=== PATIENT | male | born 1985 | race Caucasian/White ===

== ENCOUNTER 2021-01-03 10:01 | Inpatient (IN) | payer SELFPAY ==
[2021-01-03] VITALS (36 sets, daily range): BP systolic 89–134; BP diastolic 60–84; PULSE 90–116; RESP 12–27; TEMP 37.1–39.1; O2SAT 96–100; BMI 21.9
--- NOTE | ~2021-01-03 | CT_ITS ---
EXAMINATION: CT abdomen pelvis wo con DATE: 01/03/2021 12:11 INDICATION: Lower abdominal pain, recently passed kidney stones, urinary retention TECHNIQUE: Computed tomography (CT) of the abdomen and pelvis was performed without intravenous contr ast. The dose-length product (DLP) was 216.01 mGy-cm. Automated exposure control and iterative recons truction technique were employed. COMPARISON: None FINDINGS: Minimal dependent atelectasis is present in the lung bases. The heart size is normal. The l iver, spleen, pancreas, gallbladder, and adrenal glands are normal. No stones are identified in the k idneys, ureters, or bladder. There is no hydronephrosis or hydroureter. The bladder is distended and demonstrates diffuse wall thickening. There is mild perinephric stranding surrounding the kidneys. No pathologically enlarged abdominal or pelvic lymph nodes are identified. There is no free intraperito carlee gas or evidence of bowel obstruction. The appendix is normal. IMPRESSION: 1. Distended urinary bladder with wall thickening and mild perinephric stranding surrounding the kidn eys. Findings are suggestive of urinary tract infection with possible superimposed pyelonephritis. Reviewed, dictated and finalized at location A. IMPRESSION: 1. Distended urinary bladder with wall thickening and mild perinephric strandin g surrounding the kidneys. Findings are suggestive of urinary tract infection w ith possible superimposed pyelonephritis.
[2021-01-03 10:27] LABS: Basophils Absolute Auto 0.1 K/mm3 (0.0-0.1); Basophils Percent Auto 0.4 % (0.2-1.2); Hematocrit 46.7 % (42.0-52.0); Hemoglobin 16.2 g/dL (14.0-18.0); Immature Granulocyte Absolute 0.23 K/mm3 (0.00-0.031); Immature Granulocyte Percent A 1.5 % (0-0.5); Immature Platelet Fraction Pct 5.9 % (0.9-11.2); Lymphocytes Absolute Auto 0.24 K/mm3 (0.9-3.2); Lymphocytes Percent Auto 1.5 % (18.3-44.2); Mean Corpuscular HGB Conc 34.7 g/dl (32-36); Mean Corpuscular Hemoglobin 32.5 pg (26-34); Mean Corpuscular Volume 93.8 fl (80-100); Mean Platelet Volume 10.8 fl (7.4-10.4); Monocytes Absolute Auto 0.2 K/mm3 (0.1-0.6); Monocytes Percent Auto 1.4 % (2.6-8.5); Neutrophils Absolute Auto 15.1 K/mm3 (1.3-6.7); Neutrophils Percent Auto 95.2 % (45.5-73.1); Platelet Count Result 97 k/mm3 (150-375); Red Blood Count 4.98 M/mm3 (4.6-6.20); Red Cell Distribution Width 12.3 % (11.5-14.5); White Blood Count 15.8 K/mm3 (4.5-10.0)
[2021-01-03 10:35] LABS: Anion Gap 12 mmol/L (8-16); Blood Urea Nitrogen 38 mg/dL (9-20); Carbon Dioxide 26 mmol/L (22-30); Chloride 98 mmol/L (98-107); Estimated Glomerular Filt Rate 24; Glucose 119 mg/dL (75-110); Potassium 4.7 mmol/L (3.4-5.0); Sodium 136 mmol/L (137-145)
[2021-01-03] MEDS: SODIUM CHLORIDE 0.9% IV 1,000 ML 999 ML IV CONT (10:45)
[2021-01-03 11:00] LABS: Add Urine Microscopic? YES; Appearance Urine Cloudy (Clear); Bacteria Urine 4+ /hpf; Bilirubin Urine Negative (Negative); Blood Urine 3+ (Negative); Color Urine Amber (Yellow); Glucose Urine UA Negative (Negative); Hyaline Casts Urine 15-19 /lpf; Ketones Urine Negative (Negative); Leukocyte Esterase Ur 3+ LEU/UL (Negative); Mucus Urine Few /lpf; Nitrate Urine Negative (Negative); Protein Urine 2+ mg/dL (Negative); RBC Urine 21-50 /hpf (0-2); Specific Grav Ur 1.014 (1.001-1.035); Squamous Epithelial Cell Urine Few /hpf (Few); WBC Clumps Urine Present /HPF; WBC Urine >75 /hpf
[2021-01-03] MEDS: SODIUM CHLORIDE 0.9% IV 1,000 ML 999 ML (11:12)
[2021-01-03] MEDS: ONDANSETRON INJ 4 MG/2 ML VIAL (11:12)
--- NOTE | 2021-01-03 11:13 | PC.NURSE ---
Pt. stated feeling the urge to vomit. ERP notified. ERP ordered another 1L of NS and 4mg of zofran IVP via verbal order readback.
[2021-01-03] MEDS: ONDANSETRON INJ 4 MG/2 ML VIAL IV PUSH (12:31)
[2021-01-03] MEDS: FAMOTIDINE 20 MG/2 ML VIAL IV PUSH (12:31)
--- NOTE | 2021-01-03 13:00 | PC.NURSE ---
Multiple knight catheter attempts by RN. ERP aware. Urology notified. Pt. retaining urine. Bladder scanner shows over 999+ in bladder. ERP is aware.
--- NOTE | 2021-01-03 14:50 | ED.ABDPAIN ---
HPI - Abdominal Pain General Chief Complaint: Urogenital-Male Stated Complaint: poss kidney stone Time Seen by Provider: 01/03/21 10:05 Source: patient Mode of arrival: ambulatory Limitations: no limitations History of Present Illness HPI narrative: 35-year-old with no major medical problems here with complaints of lower abdominal pain. Patient states that he has been having penile pain for past few days , last night he stated he passed a small kidney stone however he still continues to have pain when he urinates mostly at the end of his micturition. He denies any fever or chills. Complains of mild nausea. No previous history of kidney stones. He states that at age 21 had a similar problem had to have a Meza catheter put in at that time. MD elicited complaint: abdominal pain Pertinent past history: none Onset (ago): day(s) (1) Pain Consistency: constant Location: suprapubic Severity: severe Quality: aching and fullness Radiation: other (Tip of the penis) Relieving factors: nothing Associated symptoms: nausea Related Data Allergies Allergy/AdvReac Type Severity Reaction Status Date / Time No Known Allergies Allergy Verified 01/03/21 10:44 Review of Systems Review of Systems: All systems reviewed & are unremarkable except as noted in HPI and below Constitutional: Constitutional: Reports no additional constitutional complaints Eyes: Eyes: Reports no additional eye complaints ENT: Reports system reviewed and no additional complaints, except as documented Cardiovascular: Cardiovascular: Reports no additional cardiovascular complaints Respiratory: Respiratory: Reports no additional respiratory complaints Gastrointestinal: Gastrointestinal: Reports as per HPI Genitourinary: Genitourinary: Reports as per HPI, Reports oliguria and Reports genital pain Musculoskeletal: Musculoskeletal: Reports no additional musculoskeletal complaints Integumentary/Breasts: Skin/Breast: Reports system reviewed and no additional complaints, except as docu Neurologic: Reports system reviewed and no additional complaints, except as documented Psychiatric: Psychiatric: Reports no additional psychiatric complaints Exam Narrative: Exam Narrative: GENERAL: Well-appearing, well-nourished, and in no acute distress. HEAD: Normocephalic, atraumatic. EYES: PERRLA and EOMI.. NECK: Supple. CHEST: Clear to auscultation. No respiratory distress. HEART: Tachycardic. No murmur heard. Normal peripheral pulses. ABDOMEN: Soft, suprapubic tenderness, nondistended, normal active bowel sounds. EXTREMITIES: Normal range of motion. No edema. SKIN: Warm, dry, no rash. NEURO: No focal deficits. Alert and oriented x3. PSYCH: Normal mood and affect. Course Course Emergency Course: Patient was given 2 L of fluid which improved his blood pressure his systolic is 115/80 however he still remained tachycardic I did discuss his lab work and CT findings with the patient. I did a bladder scan on him which had 999 mL of urine he was able to void only 120 initially and later he did void 600 mL however repeat bladder scan showed 400 mL of urine. Discussed with Dr. Haque recommended Meza catheter however we were unable to place a Meza catheter had a stricture. Dr. Haque was here at the bedside placed a Meza catheter. Vital Signs Vital signs: Vital Signs Pulse Rate 107 H 01/03/21 10:20 Respiratory Rate 16 01/03/21 10:20 Blood Pressure 89/60 L 01/03/21 10:20 Pulse Oximetry 98 01/03/21 10:20 Temperature 37.1 C 01/03/21 10:42 Pulse Rate 105 H 01/03/21 14:19 Respiratory Rate 26 H 01/03/21 14:19 Blood Pressure 101/69 01/03/21 14:19 Pulse Oximetry 99 01/03/21 14:19 MDM - Abdominal Pain Differential Diagnosis Differential diagnosis: Likely abdominal pain and calculus of kidney Lab Data Result diagrams: 01/03/21 10:20 01/03/21 10:20 Labs: Lab Results 01/03/21 01/03/21 01/03/21 Range/Units 10:20 10:
--- NOTE | 2021-01-03 15:25 | WPDURCON ---
Assessment and Plan Assessment and plan (1) Acute retention of urine: Code(s): R33.8 - Other retention of urine Status: Acute Assessment and Plan: I was able to place a 12 [place] Meza catheter. He should keep the catheter until Tuesday. At that point, if the UTI is being well treated and the rneal function has returned to normal, he can have a voiding trial. He will need a cystoscopy in the office as an outpatient with either Dr. Valdivia or Dr. Salmon. I suspect that he has a urethral stricture. Further work up with the cystoscopy ad RUG will be needed as an outpatient. Urology Consult Note HPI Date Seen: 01/03/21 Primary Care Provider: Rylan Arciniega MD Consult Narrative Narrative: Oli Dickson is a 35 year old male. He passed a stone yesterday. He had progressive penile pain and difficulty voiding. He presented to the ER with fever, chills, and hypotension. He hwas found to have acute renal failure. His PVR was 1L. Meza catheters were attempted by the ER staff, and could not be placed. He reports a prior history of urethral trauma when he was 21. A stone got stuck in the urethra. After a catheter was placed, the stone came out. Hehas a lot of voiding issues at baseline with difficulty passing urine and taking a long time to pass urine. Review of Systems Review of Systems: All systems reviewed & are unremarkable except as noted in HPI and below Meds Home Medications and Allergies Allergies Allergy/AdvReac Type Severity Reaction Status Date / Time No Known Allergies Allergy Verified 01/03/21 10:44 Vital Signs Vital Signs - 24 hr 01/03/21 10:20 01/03/21 10:21 01/03/21 10:37 Temperature Pulse Rate 107 H 104 H 90 Respiratory Rate 16 18 25 H Blood Pressure 89/60 L Pulse Oximetry 98 98 99 01/03/21 10:42 01/03/21 10:45 01/03/21 10:47 Temperature 37.1 C Pulse Rate 110 H 116 H 104 H Respiratory Rate 22 H 16 16 Blood Pressure 93/67 L 89/73 L Pulse Oximetry 98 98 98 01/03/21 11:12 01/03/21 11:13 01/03/21 11:15 Temperature Pulse Rate 104 H 102 H 105 H Respiratory Rate 23 H 22 H 18 Blood Pressure 109/76 Pulse Oximetry 98 98 01/03/21 11:16 01/03/21 11:30 01/03/21 11:31 Temperature Pulse Rate 105 H 104 H 109 H Respiratory Rate 16 17 17 Blood Pressure 116/81 110/82 Pulse Oximetry 98 100 100 01/03/21 11:45 01/03/21 11:50 01/03/21 12:00 Temperature Pulse Rate 98 104 H 105 H Respiratory Rate 16 19 20 Blood Pressure 107/72 Pulse Oximetry 100 100 100 01/03/21 12:24 01/03/21 12:30 01/03/21 12:31 Temperature Pulse Rate 114 H 111 H 109 H Respiratory Rate 17 23 H 23 H Blood Pressure 119/71 Pulse Oximetry 100 100 99 01/03/21 12:45 01/03/21 12:46 01/03/21 13:00 Temperature Pulse Rate 108 H 111 H 104 H Respiratory Rate 27 H 20 24 H Blood Pressure 113/71 Pulse Oximetry 100 01/03/21 14:08 01/03/21 14:18 01/03/21 14:19 Temperature Pulse Rate 110 H 111 H 105 H Respiratory Rate 26 H 13 26 H Blood Pressure 101/69 Pulse Oximetry 100 99 99 01/03/21 14:20 01/03/21 14:30 01/03/21 14:31 Temperature Pulse Rate 103 H 103 H 107 H Respiratory Rate 25 H 23 H 19 Blood Pressure 109/71 Pulse Oximetry 100 98 01/03/21 14:45 01/03/21 14:46 Temperature Pulse Rate 108 H 110 H Respiratory Rate 19 19 Blood Pressure 110/68 Pulse Oximetry 98 Exam Const: General: cooperative and healthy appearing HENMT: Head: normal to inspection and normocephalic Ears: hearing grossly normal bilaterally and external ears normal Chest: Chest palpation & inspection: normal inspection of the chest Resp: Effort & Inspection: normal respiratory effort and able to speak in complete sentences : Penis: Yes normal penis and Yes circumcised Meatus: meatus normal and no meatla discharge Skin: General skin exam: normal color and no rashes or lesions noted Neuro: General: oriented to person, oriented to place and oriented to time Resul
[2021-01-03] MEDS: ACETAMINOPHEN 325 MG TABLET 650 MG PO ×2 (15:34→21:38)
[2021-01-03] MEDS: SODIUM CHLORIDE 0.9% IV 1,000 ML 125 ML IV CONT (15:35)
--- NOTE | 2021-01-03 15:54 | PC.NURSE ---
report received from Jonah RN in ED, reviewed plan of care
--- NOTE | 2021-01-03 16:15 | ADMGEN ---
This patient, Oli Dickson, was admitted to Medical Room 342-01. Patient/family oriented to hospital policies and general routines including ID bracelet, bed and alarms, visiting hours, pain management, procedures, bathroom and other care routines, personal items, smoking policy, room service/diet, and visiting hours. Information on how to activate the Rapid Response Team has been discussed. Patient/Family are encouraged to report perceived risks to care and to ask questions if they do not understand what they are told or what they should do.
--- NOTE | 2021-01-03 17:44 | PM.IMHP ---
H&P: HPI History of Present Illness Date/Time: 01/03/21 17:44 this is a 35-year-old male patient who came to the emergency room with complaints of lower abdominal pain. The patient stated that this started approximately 5 days ago. The patient thought that maybe he passed a small kidney stone and was still having difficulty urinating at the end of micturition. He had no fever or chills. The patient stated he had a similar episode when he was 21 years old and passed a kidney stone at that time. He had have a Meza catheter at that time as well. Today the Patient's blood pressure initially was 89/60 and he was given IV boluses. His pulse was 107. His blood pressure did improve with the 2 L of IV fluids and blood pressure is 101/69 after the IV fluids. Patient's BUN is 38 and creatinine is 3.0. A bladder scan was performed which shows approximately a 1000 mL of urine. The patient stated that they had tried 2 different Meza catheters and they were not able to get out any urine. After they removed the 2nd catheter the patient stated he voided 600 mL. However the bladder scan still showed a 400 mL of urine. Urology has been called. A Meza catheters now placed. According to Urology notes the patient Pagett Penilla catheter until Tuesday. With wall thickening and mild perinephritic stranding surrounding the kidneys. Findings are suggestive of urinary tract infection with possible superimposed pyelonephritis. The nurse reported to me that the patient had a 102 fever. Blood and urine cultures are pending on ceftriaxone, Pepcid, Zofran, and IV fluids. Patient is being admitted to inpatient status on the date of service of 01/03/2021. Chief Complaint: Abdominal pain Review of Systems Review of Systems: All systems reviewed & are unremarkable except as noted in HPI and below Constitutional: Constitutional: Reports as per HPI and Reports no additional constitutional complaints Eyes: Eyes: Reports as per HPI and Reports no additional eye complaints ENT: Reports system reviewed and no additional complaints, except as documented and Reports Normal hearing present Cardiovascular: Cardiovascular: Reports no additional cardiovascular complaints Respiratory: Respiratory: Reports no additional respiratory complaints and Reports no additional respiratory complaints Gastrointestinal: Gastrointestinal: Reports as per HPI and Reports no additional gastrointestinal complaints Musculoskeletal: Musculoskeletal: Reports no additional musculoskeletal complaints Integumentary/Breasts: Skin/Breast: Reports system reviewed and no additional complaints, except as docu and Reports as per HPI Neurologic: Reports system reviewed and no additional complaints, except as documented, Reports as per HPI and Reports Normal hearing present Psychiatric: Psychiatric: Reports no additional psychiatric complaints and Reports as per HPI Endocrine: Endocrine: Reports no additional endocrine complaints Hematologic/Lymphatic: Hematologic/Lymphatic: Reports no additional hematologic/lymphatic complaints Allergic/Immunologic: Allergic/Immunologic: Reports no additional allergic/immunologic complaints PMFSH Past Medical History Medical History Kidney stones Left elbow fracture Tobacco use Surgical History Surgical History (Updated 01/03/21 @ 17:54 by Carmela Jenkins NP) H/O elbow surgery The patient stated he has a plate and screws to his left upper pole. Family History Family History (Updated 01/03/21 @ 17:55 by Carmela Jenkins NP) Mother CAD (coronary artery disease) Father Acute myocardial infarction Lung disease Liver disease Social History Social History (Updated 01/03/21 @ 17:55 by Carmela Jenkins NP) Social History: The patient tells me that he only smokes when he drinks. The patient stated that he drinks and smokes socially. He is and lives with his . They have 2 children together. He is a bilingual hr generalist and coal inspector
[2021-01-03] MEDS: MORPHINE SULFATE (*CRX) 4 MG/ML INJ IV PUSH (19:59)
[2021-01-04] VITALS (10 sets, daily range): BP systolic 122–139; BP diastolic 67–88; PULSE 92–122; RESP 16; TEMP 37.3–38.7; O2SAT 96–100
[2021-01-04] MEDS: SODIUM CHLORIDE 0.9% IV 1,000 ML 125 ML IV CONT ×3 (00:47→15:58)
[2021-01-04] MEDS: ACETAMINOPHEN 325 MG TABLET 650 MG PO ×2 (01:46→08:10)
[2021-01-04] MEDS: MORPHINE SULFATE (*CRX) 4 MG/ML INJ IV PUSH ×3 (04:33→16:49)
[2021-01-04 05:54] LABS: Hematocrit 40.8 % (42.0-52.0); Immature Platelet Fraction Pct 5.1 % (0.9-11.2); Mean Corpuscular HGB Conc 34.3 g/dl (32-36); Mean Corpuscular Hemoglobin 32.6 pg (26-34); Mean Corpuscular Volume 95.1 fl (80-100); Mean Platelet Volume 11.1 fl (7.4-10.4); Platelet Count Result 58 k/mm3 (150-375); Red Blood Count 4.29 M/mm3 (4.6-6.20); Red Cell Distribution Width 12.3 % (11.5-14.5)
[2021-01-04 06:07] LABS: Anion Gap 7 mmol/L (8-16); Blood Urea Nitrogen 26 mg/dL (9-20); Carbon Dioxide 21 mmol/L (22-30); Chloride 106 mmol/L (98-107); Estimated CRCL calculation 77 ml/min; Estimated Glomerular Filt Rate > 60; Glucose 88 mg/dL (75-110); Potassium 3.5 mmol/L (3.4-5.0); Sodium 134 mmol/L (137-145)
[2021-01-04 07:14] LABS: Band Neutrophils Percent 40 % (0-6); Metamyelocytes Percent 1 %; Neutrophils Absolute Manual 7.52 K/mm3 (1.3-6.7); Neutrophils Percent Manual 54 % (46-73); Total Cells Counted 100
[2021-01-04 07:15] LABS: Platelet Estimate Decreased (Adequate); Stomatocytes 1+ (NORMAL)
--- NOTE | 2021-01-04 11:16 | PM.IMPN ---
Progress Note: A&P Assessment and Plan (1) Acute pyelonephritis: Code(s): N10 - Acute pyelonephritis Status: Acute Assessment and Plan: Continue with Rocephin. Blood and urine cultures are pending. The patient is febrile at this time continue with Tylenol. pain management. (2) SANG (acute kidney injury): Code(s): N17.9 - Acute kidney failure, unspecified Status: Acute Assessment and Plan: Continue with IV fluids and check BMP in the a.m.. If this does not resolve with simple hydration then may consider a renal ultrasound. (3) Acute retention of urine: Code(s): R33.8 - Other retention of urine Status: Acute Assessment and Plan: Urology has been consulted. Could be related to the kidney stone or possible urinary strictures. (4) Tobacco use: Code(s): Z72.0 - Tobacco use Status: Chronic Assessment and Plan: The patient stated he is not interested in smoking cessation at this time as he only smokes when he drinks and it is social rather than have it. Will continue with IV antibiotics and monitor culture. Subjective Date/time seen: 01/04/21 11:16 Patient was seen during the morning rounds today. Feeling slightly better. Decreased burning during urination. No shortness of breath or chest pain. No abdominal pain, no nausea, no vomiting. Mood stable Review of Systems Review of Systems: All systems reviewed & are unremarkable except as noted in HPI and below Constitutional: Constitutional: Reports as per HPI and Reports no additional constitutional complaints Eyes: Eyes: Reports as per HPI and Reports no additional eye complaints ENT: Reports system reviewed and no additional complaints, except as documented and Reports Normal hearing present Cardiovascular: Cardiovascular: Reports no additional cardiovascular complaints Respiratory: Respiratory: Reports no additional respiratory complaints and Reports no additional respiratory complaints Gastrointestinal: Gastrointestinal: Reports as per HPI and Reports no additional gastrointestinal complaints Musculoskeletal: Musculoskeletal: Reports no additional musculoskeletal complaints Integumentary/Breasts: Skin/Breast: Reports system reviewed and no additional complaints, except as docu and Reports as per HPI Neurologic: Reports system reviewed and no additional complaints, except as documented, Reports as per HPI and Reports Normal hearing present Psychiatric: Psychiatric: Reports no additional psychiatric complaints and Reports as per HPI Endocrine: Endocrine: Reports no additional endocrine complaints Hematologic/Lymphatic: Hematologic/Lymphatic: Reports no additional hematologic/lymphatic complaints Allergic/Immunologic: Allergic/Immunologic: Reports no additional allergic/immunologic complaints Exam Const: General: cooperative, healthy appearing, comfortable, no acute distress, well developed, alert, awake and Physically active Nutritional Appearance: average body habitus and well nourished Orientation/consciousness: oriented to person, oriented to place, oriented to time and patient oriented x3 Limitations: no limitations HENMT: Head: normal to inspection, No palpable skull fracture present, normocephalic and atraumatic Ears: hearing grossly normal bilaterally and external ears normal General nose exam: Normal external nose present, Normal nares present and No nasal polyps present Eyes: General: appearance normal, both eyes and all related structures Alignment and Position: alignment normal Periorbital: periorbital findings normal Eyelids: eyelids normal Conjunctivae: conjunctivae normal Sclera: sclerae normal Cornea: corneas normal Pupils: Equal, round and reactive pupils present EOM: EOMs intact bilaterally Neck: Neck: normal visual inspection, full ROM, no lymphadenopathy, trachea midline and supple Thyroid: thyroid normal Carotids: normal carotid upstroke Lymphatic: no lymphadenopat
[2021-01-04] MEDS: ONDANSETRON INJ 4 MG/2 ML VIAL IV PUSH ×2 (11:37→16:49)
--- NOTE | 2021-01-04 12:34 | WPDUROPN2 ---
Progress Note: A&P Assessment and Plan (1) Acute retention of urine: Code(s): R33.8 - Other retention of urine Status: Acute Assessment and Plan: Keep catheter in place. Will likely need cystoscopy and possible RUG to assess for stricture. Will likely be done as outpatient after treatment of current UTI. Subjective Subjective Date/Time Seen: 01/04/21 12:34 Doing well with the catheter. Still with fevers. Creatinine improving. Objective Data Vital Signs Vital Signs: Vital Signs - 24 hr 01/03/21 12:45 01/03/21 12:46 01/03/21 13:00 Temperature Pulse Rate 108 H 111 H 104 H Respiratory Rate 27 H 20 24 H Blood Pressure 113/71 Pulse Oximetry 100 01/03/21 14:08 01/03/21 14:18 01/03/21 14:19 Temperature Pulse Rate 110 H 111 H 105 H Respiratory Rate 26 H 13 26 H Blood Pressure 101/69 Pulse Oximetry 100 99 99 01/03/21 14:20 01/03/21 14:30 01/03/21 14:31 Temperature Pulse Rate 103 H 103 H 107 H Respiratory Rate 25 H 23 H 19 Blood Pressure 109/71 Pulse Oximetry 100 98 01/03/21 14:45 01/03/21 14:46 01/03/21 14:47 Temperature Pulse Rate 108 H 110 H 105 H Respiratory Rate 19 19 20 Blood Pressure 110/68 Pulse Oximetry 98 98 01/03/21 15:53 01/03/21 16:15 01/03/21 16:31 Temperature 39.1 C H Pulse Rate 105 H 114 H Respiratory Rate 12 16 Blood Pressure 121/84 102/66 Pulse Oximetry 98 100 97 01/03/21 18:00 01/03/21 20:00 01/03/21 21:38 Temperature 37.9 C H 38.3 C H 38.3 C H Pulse Rate 106 H 107 H Respiratory Rate 18 18 Blood Pressure 105/64 134/65 Pulse Oximetry 99 96 01/04/21 00:00 01/04/21 01:46 01/04/21 04:00 Temperature 38.7 C H 38.7 C H 37.8 C H Pulse Rate 122 H 114 H Respiratory Rate 16 16 Blood Pressure 123/67 122/74 Pulse Oximetry 97 99 01/04/21 07:13 01/04/21 08:00 01/04/21 08:10 Temperature 38.5 C H 38.5 C H Pulse Rate 108 H Respiratory Rate 16 Blood Pressure 133/88 Pulse Oximetry 97 97 01/04/21 09:10 Temperature 37.7 C H Pulse Rate Respiratory Rate Blood Pressure Pulse Oximetry Intake/Output Intake/Output: Intake & Output 01/01/21 01/02/21 01/03/21 01/04/21 23:59 23:59 23:59 23:59 Intake Total 2100 3100 Output Total 1370 800 Balance 730 2300 Meds/Results Medications: Active Medications Generic Name Dose Route Start Last Admin Trade Name Freq PRN Reason Stop Dose Admin Acetaminophen 650 mg 01/03/21 14:52 01/04/21 08:10 Acetaminophen 325 Mg Tablet PO 650 mg Q4H PRN Administration Mild Pain (1-3) or Fever Sodium Chloride 1,000 mls @ 125 mls/hr 01/03/21 14:55 01/04/21 08:11 Normal Saline Iv IV CONT 125 mls/hr .Q8H GURPREET Administration Ceftriaxone Sodium/Dextrose 1 gm in 50 mls @ 100 mls/hr 01/04/21 12:00 01/04/21 11:37 Rocephin 1 Gm/D5w 50 Ml IVPB 100 mls/hr Q24H GURPREET Administration Morphine Sulfate 4 mg 01/03/21 14:52 01/04/21 11:37 Morphine Sulfate (*Crx) 4 Mg/Ml Inj IV PUSH 4 mg Q2H PRN Administration Pain Rated 7-10 Ondansetron HCl 4 mg 01/03/21 14:52 01/04/21 11:37 Ondansetron Inj 4 Mg/2 Ml Vial IV PUSH 4 mg Q4H PRN Administration Nausea Radiology Results: ITS Impressions Abdomen/Pelvis CT 01/03/21 12:24 IMPRESSION: 1. Distended urinary bladder with wall thickening and mild perinephric stranding surrounding the kidneys. Findings are suggestive of urinary tract infection with possible superimposed pyelonephritis. Labs Labs: Laboratory Results - last 24 hr 01/04/21 01/04/21 05:23 05:23 WBC 8.0 RBC 4.29 L Hgb 14.0 Hct 40.8 L MCV 95.1 MCH 32.6 MCHC 34.3 RDW 12.3 Plt Count 58 L MPV 11.1 H Immature Gran % (Auto) Not Reportable Neut % (Auto) Not Reportable Lymph % (Auto) Not Reportable [place] % (Auto) Not Reportable Eos % (Auto) Not Reportable Baso % (Auto) Not Reportable Lymph # (Auto) Not Reportable [place] # (Auto) Not Reportable Eos # (Auto)
[2021-01-04] MEDS: DOXYCYCLINE HYCLATE 100 MG TABLET PO (16:47)
[2021-01-04] MEDS: methylPREDNISolone SOD SUCC 125 MG VIAL IV PUSH (16:47)
[2021-01-04 18:22] LABS: Uric Acid 3.7 mg/dL (3.5-8.5)
[2021-01-05] VITALS (7 sets, daily range): BP systolic 122–153; BP diastolic 84–98; PULSE 52–58; RESP 14–18; TEMP 35.9–36.9; O2SAT 99–100
[2021-01-05] MEDS: SODIUM CHLORIDE 0.9% IV 1,000 ML 125 ML IV CONT (02:21)
[2021-01-05] MEDS: MORPHINE SULFATE (*CRX) 4 MG/ML INJ IV PUSH ×2 (02:36→22:04)
[2021-01-05] MEDS: DOXYCYCLINE HYCLATE 100 MG TABLET PO ×2 (05:26→17:31)
[2021-01-05 05:58] LABS: Estimated CRCL calculation 122 ml/min; Estimated Glomerular Filt Rate > 60
--- NOTE | 2021-01-05 06:55 | WPDUROPN2 ---
Progress Note: A&P Assessment and Plan (1) Acute retention of urine: Code(s): R33.8 - Other retention of urine Status: Acute (2) SANG (acute kidney injury): Code(s): N17.9 - Acute kidney failure, unspecified Status: Acute (3) Acute pyelonephritis: Code(s): N10 - Acute pyelonephritis Status: Acute Assessment and Plan: Clinically improving - serum creatinine and WBC back to normal. Await final culture results. Tentatively plan cysto./urethral dilatation tomorrow. Subjective Subjective Date/Time Seen: 01/05/21 06:55 Tolerating catheter Review of Systems Cardiovascular: Cardiovascular: Denies chest pain, Denies lightheadedness, Denies palpitations and Denies dyspnea Respiratory: Respiratory: Denies dyspnea Gastrointestinal: Gastrointestinal: Denies diarrhea, Denies nausea and Denies vomiting Genitourinary: Genitourinary: Denies hematuria and Denies dysuria Endocrine: Endocrine: Denies palpitations Exam Const: General: no acute distress Resp: Effort & Inspection: normal respiratory effort GI: Inspection: non-distended GI Palp: No abdominal tenderness and No Guarding due to palpation present (GI) Auscultation: normal bowel sounds Objective Data Vital Signs Vital Signs: Vital Signs - 24 hr 01/04/21 07:13 01/04/21 08:00 01/04/21 08:10 Temperature 101.3 F H 101.3 F H Pulse Rate 108 H Respiratory Rate 16 Blood Pressure 133/88 Pulse Oximetry 97 97 01/04/21 09:10 01/04/21 12:00 01/04/21 16:00 Temperature 99.8 F H 99.5 F 99.1 F Pulse Rate 102 H 93 Respiratory Rate 16 16 Blood Pressure 135/83 130/80 Pulse Oximetry 98 100 01/04/21 19:29 01/05/21 00:00 01/05/21 04:00 Temperature 99.2 F 98.0 F 97.8 F Pulse Rate 92 58 L 57 L Respiratory Rate 16 16 14 Blood Pressure 139/84 142/84 H 138/97 H Pulse Oximetry 96 100 99 Intake/Output Intake/Output: Intake & Output 01/02/21 01/03/21 01/04/21 01/05/21 23:59 23:59 23:59 23:59 Intake Total 2100 7320 650 Output Total 1370 3125 3150 Balance 730 4195 -2500 Meds/Results Medications: Active Medications Generic Name Dose Route Start Last Admin Trade Name Freq PRN Reason Stop Dose Admin Acetaminophen 650 mg 01/03/21 14:52 01/04/21 08:10 Acetaminophen 325 Mg Tablet PO 650 mg Q4H PRN Administration Mild Pain (1-3) or Fever Doxycycline Hyclate 100 mg 01/04/21 18:00 01/05/21 05:26 Doxycycline Hyclate 100 Mg Tablet PO 100 mg Q12H GURPREET Administration Sodium Chloride 1,000 mls @ 125 mls/hr 01/03/21 14:55 01/05/21 02:21 Normal Saline Iv IV CONT 125 mls/hr .Q8H GURPREET Administration Piperacillin/Tazobactam/Dextrose 3.375 gm in 50 mls @ 100 mls/hr 01/04/21 18:10 01/05/21 05:57 Zosyn 3.375 Gm/D5w 50ml Pm IVPB Infused Q6HR GURPREET Infusion Vancomycin HCl 1,250 mg in 250 mls @ 200 mls/hr 01/04/21 19:00 01/04/21 20:36 Vancomycin 1,250 Mg/D5w 250 Ml IVPB Infused Q18H GURPREET Infusion Morphine Sulfate 4 mg 01/03/21 14:52 01/05/21 02:36 Morphine Sulfate (*Crx) 4 Mg/Ml Inj IV PUSH 4 mg Q2H PRN Administration Pain Rated 7-10 Ondansetron HCl 4 mg 01/03/21 14:52 01/04/21 16:49 Ondansetron Inj 4 Mg/2 Ml Vial IV PUSH 4 mg Q4H PRN Administration Nausea Radiology Results: ITS Impressions Abdomen/Pelvis CT 01/03/21 12:24 IMPRESSION: 1. Distended urinary bladder with wall thickening and mild perinephric stranding surrounding the kidneys. Findings are suggestive of urinary tract infection with possible superimposed pyelonephritis. Labs Labs: Laboratory Results - last 24 hr 01/04/21 01/04/21 01/05/21 05:23 17:55 05:31 WBC 8.0 RBC 4.29 L Hgb 14.0 Hct 40.8 L MCV 95.1 MCH 32.6 MCHC 34.3 RDW 12.3 Plt Count 58 L MPV 11.1 H Immature Gran % (Auto) Not Reportable Neut % (Auto) Not Reportable Lymph % (Auto) Not Reportable [place] % (Auto) Not Reportable Eos % (Auto)
[2021-01-05] MEDS: ONDANSETRON INJ 4 MG/2 ML VIAL IV PUSH ×2 (09:25→17:30)
[2021-01-05] MEDS: PANTOPRAZOLE 40 MG TABLET PO (10:04)
--- NOTE | 2021-01-05 11:53 | PM.IMPN ---
Progress Note: A&P Assessment and Plan (1) Acute pyelonephritis: Code(s): N10 - Acute pyelonephritis Status: Acute Assessment and Plan: Continue with Rocephin. Blood and urine cultures are pending. The patient is febrile at this time continue with Tylenol. pain management. (2) SANG (acute kidney injury): Code(s): N17.9 - Acute kidney failure, unspecified Status: Acute Assessment and Plan: Continue with IV fluids and check BMP in the a.m.. If this does not resolve with simple hydration then may consider a renal ultrasound. (3) Acute retention of urine: Code(s): R33.8 - Other retention of urine Status: Acute Assessment and Plan: Urology has been consulted. Could be related to the kidney stone or possible urinary strictures. (4) Tobacco use: Code(s): Z72.0 - Tobacco use Status: Chronic Assessment and Plan: The patient stated he is not interested in smoking cessation at this time as he only smokes when he drinks and it is social rather than have it. Will continue with IV antibiotics and monitor culture. 01/05/21: Patient is feeling much better today. Cultures are still pending. Will continue with current plan of care and treatment. Patient is scheduled for cystoscopy in the morning. Subjective Date/time seen: 01/05/21 11:53 Patient was seen during the morning rounds today. Patient is feeling much better. Decrease abdominal pain. No nausea vomiting. No shortness of breath or chest pain. Mood stable. Review of Systems Review of Systems: All systems reviewed & are unremarkable except as noted in HPI and below Constitutional: Constitutional: Reports as per HPI and Reports no additional constitutional complaints Eyes: Eyes: Reports as per HPI and Reports no additional eye complaints ENT: Reports system reviewed and no additional complaints, except as documented and Reports Normal hearing present Cardiovascular: Cardiovascular: Reports no additional cardiovascular complaints Respiratory: Respiratory: Reports no additional respiratory complaints and Reports no additional respiratory complaints Gastrointestinal: Gastrointestinal: Reports as per HPI and Reports no additional gastrointestinal complaints Musculoskeletal: Musculoskeletal: Reports no additional musculoskeletal complaints Integumentary/Breasts: Skin/Breast: Reports system reviewed and no additional complaints, except as docu and Reports as per HPI Neurologic: Reports system reviewed and no additional complaints, except as documented, Reports as per HPI and Reports Normal hearing present Psychiatric: Psychiatric: Reports no additional psychiatric complaints and Reports as per HPI Endocrine: Endocrine: Reports no additional endocrine complaints Hematologic/Lymphatic: Hematologic/Lymphatic: Reports no additional hematologic/lymphatic complaints Allergic/Immunologic: Allergic/Immunologic: Reports no additional allergic/immunologic complaints Exam Const: General: cooperative, healthy appearing, comfortable, no acute distress, well developed, alert, awake and Physically active Nutritional Appearance: average body habitus and well nourished Orientation/consciousness: oriented to person, oriented to place, oriented to time and patient oriented x3 Limitations: no limitations HENMT: Head: normal to inspection, No palpable skull fracture present, normocephalic and atraumatic Ears: hearing grossly normal bilaterally and external ears normal General nose exam: Normal external nose present, Normal nares present and No nasal polyps present Eyes: General: appearance normal, both eyes and all related structures Alignment and Position: alignment normal Periorbital: periorbital findings normal Eyelids: eyelids normal Conjunctivae: conjunctivae normal Sclera: sclerae normal Cornea: corneas normal Pupils: Equal, round and reactive pupils present EOM: EOMs intact bilaterally Neck: Neck: normal vis
[2021-01-05] MEDS: MAG HYDROX/AL HYDROX/SIMETH 30 ML UDC PO (13:31)
[2021-01-05] MEDS: ACETAMINOPHEN 325 MG TABLET 650 MG PO (18:10)
[2021-01-06] VITALS (9 sets, daily range): BP systolic 115–141; BP diastolic 70–97; PULSE 48–89; RESP 12–18; TEMP 36–36.6; O2SAT 99–100
--- NOTE | 2021-01-06 06:16 | PC.NURSE ---
This patient, Oli Dickson, was transferred to OR on 01/06/21 at 0616 via stretcher. Personal belongings left in room. Signed consent sent with pt.
--- NOTE | 2021-01-06 06:34 | WPDHPUPDATE1 ---
History and Physical Update Update Date/Time: 01/06/21 06:34 History and Physical has been reviewed, including an updated exam of the patient. There are NO changes in the patient's condition. Risks, benefits, and alternatives have been discussed and questions answered. Patient agrees to proceed with procedure.
--- NOTE | 2021-01-06 06:46 | WPDANESEPPF ---
Anes - Initial Pre Proc Eval Procedure: Operation Date: 01/06/21 07:30 Proposed Procedures p Cystoscopy, Urethral Dilatation - Ángel Valdivia MD Date/Time: 01/06/21 06:46 Surgeon: Anh Wolf MD Pre Op Diagnosis: abbi,acute urimnary retention,pyelonephritis Patient Data Age: 35 Gender: M Height: 1.88 m Weight: 77.3 kg Last Vital Signs Temp 36.0 C L 01/06/21 05:29 Pulse 80 01/06/21 05:29 Resp 16 01/06/21 05:29 BP 130/77 01/06/21 05:29 Pulse Ox 99 01/06/21 05:29 Allergies Allergy/AdvReac Type Severity Reaction Status Date / Time No Known Allergies Allergy Verified 01/06/21 06:37 Home Medications Medication Instructions Recorded Confirmed Type No Home Medications 01/04/21 01/04/21 History Laboratory Tests 01/06/21 05:57 Vancomycin Trough Pending Patient hx anesthesia problems: none Family hx anesthesia problems: none PMFSH Past Medical History Medical History Kidney stones Left elbow fracture Tobacco use Surgical History Surgical History (Updated 01/03/21 @ 17:54 by Carmela Jenkins NP) H/O elbow surgery The patient stated he has a plate and screws to his left upper pole. Family History Family History (Updated 01/03/21 @ 17:55 by Carmela Jenkins NP) Mother CAD (coronary artery disease) Father Acute myocardial infarction Lung disease Liver disease Social History Social History (Updated 01/03/21 @ 17:55 by Carmela Jenkins NP) Social History: The patient tells me that he only smokes when he drinks. The patient stated that he drinks and smokes socially. He is and lives with his . They have 2 children together. 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 His is the durable power divorce attorney for healthcare any desires to be a full code. The patient does occasionally use marijuana Smoking status: Current some day smoker Tobacco type: cigarettes Alcohol intake: current Drinks per week: 12 Substance use type: marijuana Last use: socially once or twice per month Gender identity (if verbalized by the patient): Male Sexual Orientation (if Verbalized by the Patient): Straight or Heterosexual Spiritual care concerns: No Anes - Eval Final PreProcedure Day of Procedure 01/06/21 06:46 Patient weight: normal Heart: regular rate and rhythm Lungs: clear to auscultation and normal air movement Airway: Mallampati scale class II Neurological: alert and oriented Last oral intake: >/= 8 hours ASA classification: II Emergent: no Anesthetic plan: proceed Anesthesia type and monitoring: general LMA Informed Consent: The patient's anesthetic plan and its attendant risks and benefits were discussed with the patient/family/POA. Questions were solicited and answers provided to the satisfaction of the patient/family/POA.
[2021-01-06 07:27] LABS: Vancomycin Trough 6.4 ug/mL (10.0-20.0)
[2021-01-06] MEDS: LACTATED RINGERS 1,000 ML 30 ML IV CONT (07:27)
[2021-01-06] MEDS: SCOPOLAMINE 1.5 MG PATCH TRANSDERM (07:32)
--- NOTE | 2021-01-06 07:45 | SUR.PREOP ---
Vancomycin trough resulted and low, vanc antibiotic sent to OR
[2021-01-06] MEDS: LIDOCAINE HCL 2% GEL UROJET 10 ML PKG MUCOUS MEM (07:50)
--- NOTE | 2021-01-06 07:59 | W.PM.PROC2 ---
Procedure Note - Detailed Date of Procedure 01/06/21 Pre-op Diagnosis Urethral stricture Post-op Diagnosis same Procedure Performed Cystoscopy, urethral dilatation Surgeon Ángel Valdivia MD Front Desk Team Member None Anesthesia general Indications Urinary retention, SANG Findings Narrow, bulbous urethral stricture Description of Procedure The patient was brought to the operative suite where he was prepped and draped in a routine sterile fashion while in a dorsal lithotomy position after the uneventful induction of a general LMA anesthetic. Cystoscopy was undertaken with a flexible cystoscope. There was noted to be a tight, bulbous urethral stricture with evidence of recent difficult catheterization. The prostatic urethral estimated length was 1.0cm. There was no obstruction of the prostatic urethra. The bladder itself was endoscopically normal without foreign body or neoplasm. The bladder mucosa was without hyperemia. There was a single orthotopic ureteral orifice bilaterally with clear efflux of urine. Using the Amplatz dilators over a 0.035 guidewire and 8F dilator, I dilated the urethra and bladder neck from 8F->22 F. I placed a 18F Coude' catheter to drainage. The bladder was emptied and the patient was taken to the recovery room in good condition Implants None Estimated Blood Loss 0 Urine Output 800 Drains No Packing No Pathology none sent Complications No immediate complications Condition stable Disposition PACU
[2021-01-06] MEDS: PANTOPRAZOLE 40 MG TABLET PO (09:30)
--- NOTE | 2021-01-06 11:46 | PM.IMPN ---
Progress Note: A&P Assessment and Plan (1) Acute retention of urine: Code(s): R33.8 - Other retention of urine Status: Acute Assessment and Plan: Status post cystoscopy with stricture dilatation by Urology (2) SANG (acute kidney injury): Code(s): N17.9 - Acute kidney failure, unspecified Status: Acute Assessment and Plan: Monitor and the function and electrolytes (3) Acute pyelonephritis: Code(s): N10 - Acute pyelonephritis Status: Acute Assessment and Plan: IV antibiotics Subjective Date/time seen: 01/06/21 11:46 Patient had cystoscopy this morning, pain improved after the procedure. Exam Const: General: cooperative and no acute distress HENMT: Head: normal to inspection Eyes: General: appearance normal, both eyes and all related structures Neck: Neck: normal visual inspection Chest: Chest palpation & inspection: normal inspection of the chest Resp: Effort & Inspection: normal respiratory effort Cardio: Jugular venous distension: no JVD Rate: regular rate GI: Inspection: normal to inspection and non-distended Objective Data Vital Signs Vital Signs: Vital Signs - 24 hr 01/05/21 12:00 01/05/21 16:00 01/05/21 20:00 Temperature 97.7 F 97.0 F L 98.4 F Pulse Rate 54 L 55 L 54 L Respiratory Rate 18 18 16 Blood Pressure 152/93 H 122/88 128/88 Pulse Oximetry 99 100 100 01/06/21 05:29 01/06/21 06:25 01/06/21 08:06 Temperature 96.8 F L 96.8 F L 96.8 F L Pulse Rate 80 58 L 67 Respiratory Rate 16 16 14 Blood Pressure 130/77 130/81 124/93 H Pulse Oximetry 99 100 100 01/06/21 08:20 01/06/21 08:35 01/06/21 08:50 Temperature Pulse Rate 48 L 55 L 51 L Respiratory Rate 12 14 14 Blood Pressure 141/97 H 128/95 H 131/89 Pulse Oximetry 100 100 100 01/06/21 09:05 Temperature 96.8 F L Pulse Rate 51 L Respiratory Rate 14 Blood Pressure 141/96 H Pulse Oximetry 100 Intake/Output Intake/Output: Intake & Output 01/03/21 01/04/21 01/05/21 01/06/21 23:59 23:59 23:59 23:59 Intake Total 2100 7320 2700 400 Output Total 1370 1145 7297 8899 Balance 730 0773 -1470 -5820 Meds/Results Medications: Active Medications Generic Name Dose Route Start Last Admin Trade Name Freq PRN Reason Stop Dose Admin Acetaminophen 650 mg 01/03/21 14:52 01/05/21 18:10 Acetaminophen 325 Mg Tablet PO 650 mg Q4H PRN Administration Mild Pain (1-3) or Fever Al Hydrox/Mg Hydrox/Simethicone 30 ml 01/05/21 12:41 01/05/21 13:31 Mag Hydrox/Al Hydrox/Simeth 30 Ml Udc PO 30 ml Q6H PRN Administration Indigestion Doxycycline Hyclate 100 mg 01/04/21 18:00 01/06/21 05:08 Doxycycline Hyclate 100 Mg Tablet PO Not Given Q12H GURPREET Piperacillin/Tazobactam/Dextrose 3.375 gm in 50 mls @ 100 mls/hr 01/04/21 18:10 01/06/21 05:48 Zosyn 3.375 Gm/D5w 50ml Pm IVPB Infused Q6HR GURPREET Infusion Vancomycin HCl 1,500 mg in 500 mls @ 333.333 mls/hr 01/06/21 08:00 01/06/21 08:22 Vancomycin 1,500 Mg/D5w 500 Ml IVPB 333.33 mls/hr Q12H GURPREET Administration Morphine Sulfate 4 mg 01/03/21 14:52 01/05/21 22:04 Morphine Sulfate (*Crx) 4 Mg/Ml Inj IV PUSH 4 mg Q2H PRN Administration Pain Rated 7-10 Ondansetron HCl 4 mg 01/03/21 14:52 01/05/21 17:30 Ondansetron Inj 4 Mg/2 Ml Vial IV PUSH 4 mg Q4H PRN Administration Nausea Pantoprazole Sodium 40 mg 01/05/21 09:40 01/06/21 09:30 Pantoprazole 40 Mg Tablet PO 40 mg QAM GURPREET Administration Radiology Results: ITS Impressions Abdomen/Pelvis CT 01/03/21 12:24 IMPRESSION: 1. Distended urinary bladder with wall thickening and mild perinephric stranding surrounding the kidneys. Findings are suggestive of urinary tract infection with possible superimposed pyelonephritis. Labs Labs: Laboratory Results - last 24 hr 01/06/21 05:57 Vancomycin Trough 6.4 L Quality VTE Prophylaxis VTE prophylaxis: mechanical ordered
[2021-01-06] MEDS: DOXYCYCLINE HYCLATE 100 MG TABLET PO (17:32)
[2021-01-06] MEDS: MORPHINE SULFATE (*CRX) 4 MG/ML INJ IV PUSH (21:34)
[2021-01-07] MEDS: DOXYCYCLINE HYCLATE 100 MG TABLET PO ×2 (05:13→17:30)
[2021-01-07 05:52] LABS: Basophils Percent Auto 0.3 % (0.2-1.2); Eosinophils Percent Auto 0.2 % (0-4.4); Hematocrit 38.5 % (42.0-52.0); Hemoglobin 13.5 g/dL (14.0-18.0); Immature Granulocyte Absolute 0.06 K/mm3 (0.00-0.031); Immature Granulocyte Percent A 0.7 % (0-0.5); Immature Platelet Fraction Pct 17.2 % (0.9-11.2); Lymphocytes Absolute Auto 2.49 K/mm3 (0.9-3.2); Lymphocytes Percent Auto 28.3 % (18.3-44.2); Mean Corpuscular HGB Conc 35.1 g/dl (32-36); Mean Corpuscular Hemoglobin 32.1 pg (26-34); Mean Corpuscular Volume 91.7 fl (80-100); Mean Platelet Volume 13.2 fl (7.4-10.4); Monocytes Absolute Auto 1.2 K/mm3 (0.1-0.6); Monocytes Percent Auto 13.3 % (2.6-8.5); Neutrophils Percent Auto 57.2 % (45.5-73.1); Platelet Count Result 54 k/mm3 (150-375); Red Cell Distribution Width 12.1 % (11.5-14.5); White Blood Count 8.8 K/mm3 (4.5-10.0)
[2021-01-07 06:03] VITALS: BP 129/89; PULSE 54; RESP 16; TEMP 36; O2SAT 100
[2021-01-07 06:08] LABS: Anion Gap 5 mmol/L (8-16); Blood Urea Nitrogen 11 mg/dL (9-20); Calcium 8.5 mg/dL (8.4-10.2); Carbon Dioxide 27 mmol/L (22-30); Chloride 105 mmol/L (98-107); Estimated CRCL calculation 109 ml/min; Estimated Glomerular Filt Rate > 60; Glucose 103 mg/dL (75-110); Potassium 3.6 mmol/L (3.4-5.0); Sodium 137 mmol/L (137-145)
[2021-01-07 07:17] VITALS: O2SAT 97
[2021-01-07] MEDS: PANTOPRAZOLE 40 MG TABLET PO (09:06)
--- NOTE | 2021-01-07 10:16 | WPDANESPN ---
Anes - Prog Note Post-Op Date/Time: 01/07/21 10:16 Cardiovascular status: normal Respiratory status: normal Airway patency: baseline Mental status: baseline Post-Op hydration status: normal Vital Signs: Last Vital Signs Temp 36.0 C L 01/07/21 06:03 Pulse 54 L 01/07/21 06:03 Resp 16 01/07/21 06:03 BP 129/89 01/07/21 06:03 Pulse Ox 97 01/07/21 07:17 Pain Score (VAS): 0/10. Patient resting in bed at time of assessment, appears comfortable. I/O: Intake & Output 01/06/21 01/07/21 01/07/21 23:59 07:59 15:59 Intake Total 720 550 Output Total 1900 1600 Balance -1180 -1050 Laboratory Tests 01/07/21 05:36 01/07/21 05:36 01/07/21 01/07/21 05:36 05:36 WBC 8.8 RBC 4.20 L Hgb 13.5 L Hct 38.5 L MCV 91.7 MCH 32.1 MCHC 35.1 RDW 12.1 Plt Count 54 L MPV 13.2 H Immature Gran % (Auto) 0.7 H Neut % (Auto) 57.2 Lymph % (Auto) 28.3 [place] % (Auto) 13.3 H Eos % (Auto) 0.2 Baso % (Auto) 0.3 Lymph # (Auto) 2.49 [place] # (Auto) 1.2 H Eos # (Auto) 0.0 Baso # (Auto) 0.0 Abs Immat Gran (auto) 0.06 H Absolute Neuts (auto) 5.0 Absolute Nucleated RBC 0.0 Nucleated RBC % 0.0 % Immature Plt Fraction 17.2 H Sodium 137 Potassium 3.6 Chloride 105 Carbon Dioxide 27 Anion Gap 5 L BUN 11 D Creatinine 0.90 Estim Creat Clear Calc 109 Estimated GFR > 60 Glucose 103 Calcium 8.5 Microbiology 01/03/21 11:47 Blood Blood Culture - Preliminary Group B Streptococcus isolated 01/03/21 11:21 Blood Blood Culture - Final Group B Streptococcus isolated Post-procedural complaints: none Patient Feedback: Patient satisfied with anesthetic care.
--- NOTE | 2021-01-07 11:01 | PM.IMPN ---
Progress Note: A&P Assessment and Plan (1) Acute retention of urine: Code(s): R33.8 - Other retention of urine Status: Acute Assessment and Plan: Status post cystoscopy with stricture dilatation by Urology (2) SANG (acute kidney injury): Code(s): N17.9 - Acute kidney failure, unspecified Status: Acute Assessment and Plan: Monitor and the function and electrolytes (3) Acute pyelonephritis: Code(s): N10 - Acute pyelonephritis Status: Acute Assessment and Plan: IV antibiotics (4) Bacteremia: Code(s): R78.81 - Bacteremia Status: Acute Assessment and Plan: Group B Streptococcus isolated, patient blood cultures negative so far, IV zosyn Subjective Date/time seen: 01/07/21 11:01 Interval history: Patient is resting comfortably no active complaints at this time, said that he has mild intermittent nausea that resolved at this time. Exam Const: General: cooperative and no acute distress HENMT: Head: normal to inspection Eyes: General: appearance normal, both eyes and all related structures Neck: Neck: normal visual inspection Chest: Chest palpation & inspection: normal inspection of the chest Resp: Effort & Inspection: normal respiratory effort Cardio: Jugular venous distension: no JVD Rate: regular rate GI: Inspection: normal to inspection and non-distended Objective Data Vital Signs Vital Signs: Vital Signs - 24 hr 01/06/21 14:00 01/06/21 19:46 01/07/21 06:03 Temperature 97.9 F 97.8 F 96.8 F L Pulse Rate 50 L 89 54 L Respiratory Rate 18 16 16 Blood Pressure 115/70 124/72 129/89 Pulse Oximetry 100 100 100 01/07/21 07:17 Temperature Pulse Rate Respiratory Rate Blood Pressure Pulse Oximetry 97 Intake/Output Intake/Output: Intake & Output 01/04/21 01/05/21 01/06/21 01/07/21 23:59 23:59 23:59 23:59 Intake Total 7320 2700 1870 550 Output Total 3125 5350 4115 1600 Balance 4195 -2650 -2245 -1050 Meds/Results Medications: Active Medications Generic Name Dose Route Start Last Admin Trade Name Freq PRN Reason Stop Dose Admin Acetaminophen 650 mg 01/03/21 14:52 01/05/21 18:10 Acetaminophen 325 Mg Tablet PO 650 mg Q4H PRN Administration Mild Pain (1-3) or Fever Al Hydrox/Mg Hydrox/Simethicone 30 ml 01/05/21 12:41 01/05/21 13:31 Mag Hydrox/Al Hydrox/Simeth 30 Ml Udc PO 30 ml Q6H PRN Administration Indigestion Doxycycline Hyclate 100 mg 01/04/21 18:00 01/07/21 05:13 Doxycycline Hyclate 100 Mg Tablet PO 100 mg Q12H GURPREET Administration Piperacillin/Tazobactam/Dextrose 3.375 gm in 50 mls @ 100 mls/hr 01/04/21 18:10 01/07/21 05:43 Zosyn 3.375 Gm/D5w 50ml Pm IVPB Infused Q6HR GURPREET Infusion Vancomycin HCl 1,500 mg in 500 mls @ 333.333 mls/hr 01/06/21 08:00 01/07/21 09:03 Vancomycin 1,500 Mg/D5w 500 Ml IVPB 333.3 mls/hr Q12H GURPREET Administration Morphine Sulfate 4 mg 01/03/21 14:52 01/06/21 21:34 Morphine Sulfate (*Crx) 4 Mg/Ml Inj IV PUSH 4 mg Q2H PRN Administration Pain Rated 7-10 Ondansetron HCl 4 mg 01/03/21 14:52 01/05/21 17:30 Ondansetron Inj 4 Mg/2 Ml Vial IV PUSH 4 mg Q4H PRN Administration Nausea Pantoprazole Sodium 40 mg 01/05/21 09:40 01/07/21 09:06 Pantoprazole 40 Mg Tablet PO 40 mg QAM GURPREET Administration Radiology Results: ITS Impressions Abdomen/Pelvis CT 01/03/21 12:24 IMPRESSION: 1. Distended urinary bladder with wall thickening and mild perinephric stranding surrounding the kidneys. Findings are suggestive of urinary tract infection with possible superimposed pyelonephritis. Labs Labs: Laboratory Results - last 24 hr 01/07/21 01/07/21 05:36 05:36 WBC 8.8 RBC 4.20 L Hgb 13.5 L Hct 38.5 L MCV 91.7 MCH 32.1 MCHC 35.1 RDW 12.1 Plt Count 54 L MPV 13.2 H Immature Gran % (Auto) 0.7 H Neut % (Auto) 57.2 Lymph % (Auto) 28.3 [place] % (Auto) 13.3
[2021-01-07 14:45] VITALS: BP 111/64; PULSE 51; RESP 18; TEMP 36.6; O2SAT 100
[2021-01-07 19:51] LABS: Vancomycin Trough 7.5 ug/mL (10.0-20.0)
[2021-01-07 20:15] VITALS: BP 134/96; PULSE 59; RESP 18; TEMP 36; O2SAT 100
[2021-01-07] MEDS: MORPHINE SULFATE (*CRX) 4 MG/ML INJ IV PUSH (20:59)
[2021-01-08] MEDS: DOXYCYCLINE HYCLATE 100 MG TABLET PO (05:20)
[2021-01-08 05:24] VITALS: BP 122/77; PULSE 54; RESP 16; TEMP 36.4; O2SAT 100
[2021-01-08 06:10] LABS: Estimated CRCL calculation 122 ml/min; Estimated Glomerular Filt Rate > 60
[2021-01-08] MEDS: PANTOPRAZOLE 40 MG TABLET PO (09:24)
[2021-01-08 09:40] VITALS: RESP 14
--- NOTE | 2021-01-08 11:29 | P.DS_ITS ---
DS: Admitting Diagnosis Admitting Diagnosis Admitting Diagnosis: Pyelonephritis Urinary retention Acute renal failure DS: Discharge Diagnosis Discharge Diagnosis (1) Bacteremia: Code(s): R78.81 - Bacteremia Status: Acute (2) Acute retention of urine: Code(s): R33.8 - Other retention of urine Status: Acute (3) SANG (acute kidney injury): Code(s): N17.9 - Acute kidney failure, unspecified Status: Acute (4) Acute pyelonephritis: Code(s): N10 - Acute pyelonephritis Status: Acute DS: Summary Hospital Course Reason for hospitalization: Renal failure Urine retention Hospital Course: 35-year-old male patient who came to the emergency room with complaints of lower abdominal pain. Patient found to have urinary retention, Renal failure, and pyelonephritis, urology consulted, patient cystoscopy with urethral dilatation, blood culture grow group B strep, patient treated with IV antibiotics during this hospitalization, his repeat cultures were negative, patient improved clinically, patient is stable for discharge. Time Spent with Patient Time attestation: Total time spent providing and/or coordinating discharge services: Time spent: Greater than 30 minutes DS: Data Data Completed and Pending Labs on day of discharge: Labs from last 24 hours 01/08/21 01/07/21 05:35 19:09 Creatinine 0.80 Estim Creat Clear Calc 122 Estimated GFR > 60 Vancomycin Trough 7.5 L Preliminary micro results at discharge 01/06/21 12:49 Blood Culture - Preliminary Blood 01/06/21 12:48 Blood Culture - Preliminary Blood 01/03/21 11:47 Blood Culture - Preliminary Blood Group B Streptococcus isolated Discharge Plan Discharge Consulting providers: Vance Kimball Discharging Clinician: Davy Diaz Anticipated Discharge Date/Time: 01/08/21 11:23 Patient Disposition: Home, Self-Care Activity: as tolerated Diet: regular Discharge Instructions: Remove the Scopolamine patch that was placed behind your ear in 72 hours or less. Wash your hands after touching. Patient Instructions: Antibiotic Form, How to Stop Smoking (DC), Pain Management (DC) Stand Alone Forms: General Discharge Information Follow-up/Referrals: PHYSICIAN,RETAIL ASSISTANT MANAGER [Primary Care Provider] - 1 Week Ángel Valdivia MD [Physician] - 1 Week Discharge Medications: New polyethylene glycol 3350 [Miralax] 17 gram Powder In Packet 17 g PO QAM PRN (Reason: Constipation) 7 Days RF: 0 amoxicillin-pot clavulanate [Augmentin] 875-125 mg tablet 1 tablet PO Q12H 7 Days Qty: 14 RF: 0 Date of admission: 01/03/21 14:53 Primary Care Provider: PHYSICIAN,RETAIL ASSISTANT MANAGER Admitting Provider: Anh Wolf Attending physician on admission: Davy Diaz Condition: Stable Quality VTE Prophylaxis VTE prophylaxis: mechanical ordered
--- NOTE | 2021-01-08 11:34 | WPDUROPN2 ---
Progress Note: A&P Assessment and Plan (1) Acute retention of urine: Code(s): R33.8 - Other retention of urine Status: Acute (2) Bulbous urethral stricture: Code(s): N35.912 - Unspecified bulbous urethral stricture, male Status: Acute Assessment and Plan: Agree with discharge on Augmentin given negative repeat blood cultures. Catheter up for voiding trial. We also need to get a vasectomy consultation at the bedside. Subjective Subjective Date/Time Seen: 01/08/21 11:34 Comfortable, anxious for discharge Review of Systems Cardiovascular: Cardiovascular: Denies chest pain, Denies lightheadedness, Denies palpitations and Denies dyspnea Respiratory: Respiratory: Denies dyspnea Gastrointestinal: Gastrointestinal: Denies diarrhea, Denies nausea and Denies vomiting Genitourinary: Genitourinary: Denies hematuria and Denies dysuria Endocrine: Endocrine: Denies palpitations Exam Const: General: no acute distress Resp: Effort & Inspection: normal respiratory effort GI: Inspection: non-distended GI Palp: No abdominal tenderness and No Guarding due to palpation present (GI) Auscultation: normal bowel sounds Objective Data Vital Signs Vital Signs: Vital Signs - 24 hr 01/07/21 14:45 01/07/21 20:15 01/08/21 05:24 Temperature 97.8 F 96.8 F L 97.6 F Pulse Rate 51 L 59 L 54 L Respiratory Rate 18 18 16 Blood Pressure 111/64 134/96 H 122/77 Pulse Oximetry 100 100 100 01/08/21 09:40 Temperature Pulse Rate Respiratory Rate 14 Blood Pressure Pulse Oximetry Intake/Output Intake/Output: Intake & Output 01/05/21 01/06/21 01/07/21 01/08/21 23:59 23:59 23:59 23:59 Intake Total 2700 1870 2180 1400 Output Total 5350 4115 3050 675 Balance -9802 -2245 -870 725 Meds/Results Medications: Active Medications Generic Name Dose Route Start Last Admin Trade Name Freq PRN Reason Stop Dose Admin Acetaminophen 650 mg 01/03/21 14:52 01/05/21 18:10 Acetaminophen 325 Mg Tablet PO 650 mg Q4H PRN Administration Mild Pain (1-3) or Fever Al Hydrox/Mg Hydrox/Simethicone 30 ml 01/05/21 12:41 01/05/21 13:31 Mag Hydrox/Al Hydrox/Simeth 30 Ml Udc PO 30 ml Q6H PRN Administration Indigestion Doxycycline Hyclate 100 mg 01/04/21 18:00 01/08/21 05:20 Doxycycline Hyclate 100 Mg Tablet PO 100 mg Q12H GURPREET Administration Piperacillin/Tazobactam/Dextrose 3.375 gm in 50 mls @ 100 mls/hr 01/04/21 18:10 01/08/21 05:50 Zosyn 3.375 Gm/D5w 50ml Pm IVPB Infused Q6HR GURPREET Infusion Vancomycin HCl 1,750 mg in 500 mls @ 250 mls/hr 01/08/21 09:00 01/08/21 09:24 Vancomycin 1,750 Mg/D5w 500 Ml IVPB 250 mls/hr Q12H GURPREET Administration Morphine Sulfate 4 mg 01/03/21 14:52 01/07/21 20:59 Morphine Sulfate (*Crx) 4 Mg/Ml Inj IV PUSH 4 mg Q2H PRN Administration Pain Rated 7-10 Ondansetron HCl 4 mg 01/03/21 14:52 01/05/21 17:30 Ondansetron Inj 4 Mg/2 Ml Vial IV PUSH 4 mg Q4H PRN Administration Nausea Pantoprazole Sodium 40 mg 01/05/21 09:40 01/08/21 09:24 Pantoprazole 40 Mg Tablet PO 40 mg QAM GURPREET Administration Polyethylene Glycol 17 gm 01/08/21 08:46 Polyethylene Glycol 3350 17 Gm Powd.Pack PO QAM PRN Constipation Radiology Results: ITS Impressions Abdomen/Pelvis CT 01/03/21 12:24 IMPRESSION: 1. Distended urinary bladder with wall thickening and mild perinephric stranding surrounding the kidneys. Findings are suggestive of urinary tract infection with possible superimposed pyelonephritis. Labs Labs: Laboratory Results - last 24 hr 01/07/21 01/08/21 19:09 05:35 Creatinine 0.80 Estim Creat Clear Calc 122 Estimated GFR > 60 Vancomycin Trough 7.5 L Quality VTE Prophylaxis VTE prophylaxis: mechanical ordered
--- NOTE | 2021-01-08 13:18 | PC.NURSE ---
On 01/08/21, the student, [ Oli Edgar], provided care and completed [facility] documentation on this patient. I have reviewed the student's documentation and agree with the findings.
== END 2021-01-08 11:57 | disposition home or self-care (01) | DRG 468 ==
LOC: ANHED 14:59 → ANH3MED 16:30
PROVIDERS: Emergency Medicine; Internal Medicine; Urology; Admitting Provider Family Medicine; Emergency Provider Family Medicine; Visit Provider Nurse Practitioner
PROC: 0T7D8ZZ Dilation of Urethra, Via Natural or Artificial Opening Endoscopic (ICD-10-PCS; CPT 52281; principal; 2021-01-06 07:30)
DX: N35.912 Unspecified bulbous urethral stricture, male (principal); N10 Acute pyelonephritis; R78.81 Bacteremia; B95.1 Streptococcus, group B, as the cause of diseases classified elsewhere; N17.9 Acute kidney failure, unspecified; R33.8 Other retention of urine; F17.210 Nicotine dependence, cigarettes, uncomplicated
CPT/HCPCS: 36415; 51703; 74176; 80048; 80202; 81001; 82565; 83605; 84550; 85025; 85055; 87040; 87077; 87086; 87088; 87186; 96361; 96365; 96375; 96376; 99282; A9270; C1726; C1769; J0696; J1100; J2250; J2270; J2405; J2543; J2704; J2930; J3010; J3370; J7030; J7120